=== PATIENT | male | born 1945 | race Caucasian/White ===

== ENCOUNTER 2016-04-26 21:08 | Emergency (ER) | payer OTHER ==
[2016-04-26 21:46] LABS: BASOPHIL 0.2 % (0-2); HCT 52.4 % (42.0-52.0); HGB 16.4 g/dl (13.2-18.0); MCH 28.2 pg (25.0-31.0); MCHC 31.3 g/dL (32.0-36.0); MCV 90.2 fL (78.0-100.0); MONOCYTE 10.9 % (0-12); MPV 10.2 fL (6.0-9.5); NEUTROPHIL 71.9 % (41-80); PLT 186 K/uL (150-400); RBC 5.81 M/uL (4.70-6.00); RDW 15.5 % (11.5-14.0)
[2016-04-26 22:06] LABS: ALBUMIN 3.9 g/dL (3.4-4.8); BILIRUBIN - TOTAL 0.6 mg/dL (0.1-1.0); CREATININE 0.9 mg/dL (0.7-1.2); GLOBULIN (CALCULATION) 3.1 g/dL (2.2-4.2); POTASSIUM 4.1 mmol/L (3.5-5.1)
[2016-04-26 22:07] LABS: CKMB 2.67 ng/mL (0.97-4.94); PRO-BNP 1354 pg/mL (0-125); TROPONIN T < 0.010 ng/mL
== END 2016-04-27 02:33 | disposition other institution (70) ==
LOC: FER 21:08
PROVIDERS: Emergency Medicine
DX: I50.9 Heart failure, unspecified (principal); J44.9 Chronic obstructive pulmonary disease, unspecified; I45.10 Unspecified right bundle-branch block; Z87.891 Personal history of nicotine dependence; Z88.0 Allergy status to penicillin
CPT/HCPCS: 36415; 36600; 71010; 80053; 82550; 82553; 82803; 83880; 84484; 85025; 87040; 93005; 94660; J1940

== ENCOUNTER 2016-08-03 20:52 | Emergency (ER) | payer OTHER ==
[2016-08-03 21:45] LABS: BASOPHIL 0.2 % (0-2); EOSINOPHIL 2.2 % (0-7); HCT 46.9 % (42.0-52.0); HGB 15.8 g/dl (13.2-18.0); LYMPHOCYTE 16.8 % (15-48); MCH 28.9 pg (25.0-31.0); MCHC 33.7 g/dL (32.0-36.0); MCV 85.9 fL (78.0-100.0); MONOCYTE 10.9 % (0-12); MPV 10.2 fL (6.0-9.5); NEUTROPHIL 69.9 % (41-80); PLT 201 K/uL (150-400); RBC 5.46 M/uL (4.70-6.00); RDW 16.2 % (11.5-14.0); WBC 12.6 K/uL (4.0-10.5)
[2016-08-03 22:04] LABS: CREATININE 1.6 mg/dL (0.7-1.2); POTASSIUM 4.6 mmol/L (3.5-5.1)
== END 2016-08-03 22:38 | disposition home or self-care (01) ==
LOC: FER 20:52
PROVIDERS: Emergency Medicine
DX: M76.9 Unspecified enthesopathy, lower limb, excluding foot (principal); I13.0 Hypertensive heart and chronic kidney disease with heart failure and stage 1 through stage 4 chronic kidney disease, or unspecified chronic kidney disease; E11.22 Type 2 diabetes mellitus with diabetic chronic kidney disease; N18.2 Chronic kidney disease, stage 2 (mild); I50.9 Heart failure, unspecified; I48.91 Unspecified atrial fibrillation; J44.9 Chronic obstructive pulmonary disease, unspecified; E78.5 Hyperlipidemia, unspecified; Z88.0 Allergy status to penicillin; Z79.01 Long term (current) use of anticoagulants; Z79.84 Long term (current) use of oral hypoglycemic drugs; Z79.82 Long term (current) use of aspirin; Z79.51 Long term (current) use of inhaled steroids; Z79.899 Other long term (current) drug therapy; Z93.1 Gastrostomy status; Z93.0 Tracheostomy status
CPT/HCPCS: 36415; 80048; 85025; 85379; 99283